=== PATIENT | male | born 1980 | race African-American/Black ===

== ENCOUNTER 2021-06-11 21:01 | Emergency (ER) | payer OTHER ==
[2021-06-11 21:06] VITALS: BP 137/89
--- NOTE | 2021-06-11 21:33 | XRAY Report ---
PROCEDURE: Wrist 4 View RT INDICATIONS: Trauma TECHNIQUE: 4 views of the wrist were acquired. COMPARISON: None FINDINGS: Bones: No fractures or dislocations. No suspicious bony lesions. Soft tissues: No suspicious soft tissue calcifications. IMPRESSION: No acute abnormality of the right wrist. Reviewed by: Jose Pathak on 06/11/2021 9:32 PM PDT Approved by: Jose Pathak on 06/11/2021 9:32 PM PDT Station ID: [id number]
--- NOTE | 2021-06-11 21:39 | ED Physician Documentation ---
PD HPI UPPER EXT INJURY - Stated complaint Stated Complaint: RT WRIST PX - Chief complaint Chief Complaint: Ext Problem - History obtained from History obtained from: Patient - History of Present Illness Location: Right (Right-handed [place] chief presents with 4 days of atraumatic right wrist pain in the area of the lateral wrist and radial scaphoid joint. Hurts with inversion of the wrist especially.) Review of Systems Constitutional: reports: Reviewed and negative Eyes: reports: Reviewed and negative Ears: reports: Reviewed and negative Nose: reports: Reviewed and negative PD PAST MEDICAL HISTORY - Past Medical History Musculoskeletal: Chronic back pain - Past Surgical History Past Surgical History: Yes Ortho: ACL reconstruction, Rotator cuff repair - Present Medications Home Medications: Ambulatory Orders Medication Instructions Recorded Confirmed Cyclobenzaprine [Flexeril] 10 mg PO TID PRN 06/11/21 06/11/21 Ibuprofen [Motrin] 800 mg PO Q8H PRN #30 tablet 06/11/21 - Allergies Allergies/Adverse Reactions: Allergies Allergy/AdvReac Type Severity Reaction Status Date / Time No Known Drug Allergies Allergy Verified 06/11/21 21:03 - Social History Does the pt smoke?: Yes Smoking Status: Light tobacco smoker Does the pt drink ETOH?: Yes Does the pt have substance abuse?: No - Immunizations Immunizations are current?: Yes PD ED PE NORMAL - Vitals Vital signs reviewed: Yes - General General: Alert and oriented X 3, No acute distress - Extremities Extremities: Other (Tender over the ligaments on the lateral side of the wrist and positive de Quervain's testing. No bony tenderness or limited flexion or extension. No warmth or redness.) - Neuro Neuro: Alert and oriented X 3, Normal speech Results - Vitals Vitals: Vital Signs - 24 hr 06/11/21 21:04 Temperature 36.5 C Heart Rate 77 Respiratory 16 Rate Blood Pressure 137/89 H O2 Saturation 99 Oxygen O2 Source Room air - Rads (name of study) Right wrist x-ray Radiology: EMP read contemporaneously (Negative) Departure - Departure Disposition: 01 Home, Self Care Clinical Impression: De Quervain's tenosynovitis, right Condition: Good Record reviewed to determine appropriate education?: Yes Instructions: De Quervain Tenosynovitis Prescriptions: Ibuprofen [Motrin] 800 mg PO Q8H PRN #30 tablet PRN Reason: PAIN &/OR FEVER Comments: As discussed you have a tendinitis of the right wrist. Keep the splint on, you can take it off for washing hands and showering but otherwise keep it on. Return for new or worsening symptoms. Follow-up with your doctor in a week if not better.
== END 2021-06-11 21:55 | disposition home or self-care (01) ==
LOC: ED 21:01
DX: M65.4 Radial styloid tenosynovitis [de Quervain] (principal); F17.200 Nicotine dependence, unspecified, uncomplicated
CPT/HCPCS: 99283

== ENCOUNTER 2021-10-20 08:00 | Outpatient (CLI) | payer OTHER ==
[2021-10-20 23:27] LABS: CHLAMYDIA TRACHOMATIS DNA NEGATIVE (NEGATIVE); NEISSERIA GONORRHOEAE DNA NEGATIVE (NEGATIVE)
== END 2021-10-20 23:59 ==
LOC: LAB 08:00
PROVIDERS: ATTEND Physician Assistant Medical
DX: Z20.2 Contact with and (suspected) exposure to infections with a predominantly sexual mode of transmission (principal)
CPT/HCPCS: 87491; 87591; 87661